=== PATIENT | female | born 1990 | race Caucasian/White ===

== ENCOUNTER 2018-03-19 15:17 | Emergency (ER) | payer MEDICAID, OTHER ==
[2018-03-19 15:24] VITALS: BP 146/78
[2018-03-19] MEDS ORDERED: FAMOTIDINE 20 MG TABLET PO STA (15:30)
[2018-03-19] MEDS ORDERED: DEXAMETHASONE 10 MG/ML VIAL PO STA (15:30)
--- NOTE | 2018-03-19 16:32 | ED Physician Documentation ---
History of Present Illness - Stated complaint Stated Complaint: SOA/BEE STING - Chief complaint Chief Complaint: Allergic Rx - Additonal information Additional information: hx from pt 27 y/o f LMP Feb 22 today is her wedding - at 6PM she was getting ready drinking a red bull and there was several bees in it and she swallowed the bees and they stung her inside her throat pain and swelling can breathe fine but painful to swallow no facial swelling Review of Systems Constitutional: denies: Fever Throat: reports: Sore throat Respiratory: denies: Dyspnea Skin: denies: Rash PD PAST MEDICAL HISTORY - Past Medical History Respiratory: Asthma GI: GERD, GI bleed, C.difficile, Chronic diarrhea, Chronic constipation, Other : Chronic bladder infection Psych: Depression, Anxiety, Claustrophobia Derm: Psoriasis - Past Surgical History Past Surgical History: Yes Ortho: Other HEENT: Myringotomy (tubes) - Present Medications Home Medications: Ambulatory Orders Medication Instructions Recorded Confirmed Chlordiazepoxide/Clidinium Br 1 - 2 tab PO Q4HR PRN 03/13/14 03/15/14 [Librax Capsule] Diphenoxylate/Atropine [Lomotil] 1 tab PO QID PRN 03/13/14 03/15/14 Lorazepam [Ativan] 1 tab PO BID 03/13/14 03/15/14 Nortriptyline [Pamelor] 20 mg PO QPM 03/13/14 03/15/14 Ondansetron [Zofran] 4 mg PO QID PRN 03/13/14 03/15/14 Pantoprazole Sodium 40 mg PO BID 03/13/14 03/15/14 Promethazine Supp [Phenergan Supp] 25 mg SD Q6H PRN #10 supp 03/13/14 03/15/14 Promethazine [Phenergan] 25 mg PO QID PRN 03/13/14 03/15/14 Sertraline [Zoloft] 50 mg PO DAILY 03/13/14 03/15/14 busPIRone [Buspar] 5 mg PO TID 03/13/14 03/15/14 Ondansetron Odt [Zofran] 4 mg TL Q6H PRN #10 tablet 03/15/14 03/15/14 Oxycodone HCl/Acetaminophen 1 each PO Q4HR PRN #10 tablet 03/15/14 03/15/14 [Percocet 5-325 mg Tablet] Loratadine [Claritin] 10 mg PO DAILY #3 tablet 03/19/18 predniSONE [Deltasone] 60 mg PO DAILY 3 Days #9 tablet 03/19/18 - Allergies Allergies/Adverse Reactions: Allergies Allergy/AdvReac Type Severity Reaction Status Date / Time maitake mushroom Allergy Unknown Unknown Verified 03/19/18 15:24 peanut Allergy Unknown Respiratory Verified 03/19/18 15:24 reishi mushroom Allergy Unknown Unknown Verified 03/19/18 15:24 Sulfa (Sulfonamide Allergy Unknown Unknown Verified 03/19/18 15:24 Antibiotics) - Social History Does the pt smoke?: No Smoking Status: Former smoker Does the pt drink ETOH?: No Does the pt have substance abuse?: No - POLST Patient has POLST: No PD ED PE NORMAL - Vitals Vital signs reviewed: Yes - HEENT HEENT: Other (no visible oral swelling) - Cardiac Cardiac: RRR - Respiratory Respiratory: No respiratory distress, Clear bilaterally, Other (no wheeze or stridor) - Derm Derm: Normal color, No rash - Neuro Neuro: Alert and oriented X 3 Results - Vitals Vitals: Vital Signs - 24 hr 03/19/18 15:20 Temperature 36.6 C Heart Rate 95 Respiratory 18 Rate Blood Pressure 146/78 H O2 Saturation 99 Oxygen O2 Source Room air PD MEDICAL DECISION MAKING - ED course ED course: local bee sting rxn that happend to be in her esophagus because she swallowed bees no airway impriment did not need epi gave steroids and H2B in addition to the 25 mg benadryl she already took pt doing better needs to get back to wedding site will only be a few miles away form the hospital feels safe to dc now - Sepsis Event Vital Signs: Vital Signs - 24 hr 03/19/18 15:20 Temperature 36.6 C Heart Rate 95 Respiratory 18 Rate Blood Pressure 146/78 H O2 Saturation 99 Oxygen O2 Source Room air Departure - Departure Disposition: 01 Home, Self Care Clinical Impression: Bee sting reaction Qualifiers: Encounter type: initial encounter Injury intent: accidental or unintentional Qualified Code(s): T63.441A - Toxic effect of venom of bees, accidental ( unintentional), initial encounter Condition: Good Instructions: ED Allergic Reaction Local Other Prescriptions: Loratadine [Claritin] 10 mg PO DAILY #3 tablet predniSONE [Deltasone] 60 mg PO DAILY 3 Days #9 tablet Comments: Take claritin and prednisone once daily for the next three days - next dose tomorrow Return if worse in any way Congratulations on your !!
== END 2018-03-19 16:34 | disposition home or self-care (01) ==
LOC: ED 15:17
DX: T63.441A Toxic effect of venom of bees, accidental (unintentional), initial encounter (principal); Z87.891 Personal history of nicotine dependence
CPT/HCPCS: 99281; 99283; A9270

== ENCOUNTER 2019-02-16 10:49 | Observation (INO) | payer MEDICAID, OTHER ==
[2019-02-16 11:35] LABS: BASOPHILS # (AUTO) 0.1 10^3/uL (0.0-0.1); BASOPHILS % (AUTO) 0.4 %; EOSINOPHILS % (AUTO) 0.2 %; HGB - HEMOGLOBIN 15.1 g/dL (12.0-16.0); LYMPHOCYTES # (AUTO) 0.7 10^3/uL (1.5-3.5); LYMPHOCYTES % (AUTO) 3.7 %; MEAN CORPUSCULAR HEMOGLOBIN 29.7 pg (27.0-31.0); MEAN CORPUSCULAR HGB CONC 34.2 g/dL (32.0-36.0); MEAN CORPUSCULAR VOLUME 86.6 fL (81.0-99.0); MEAN PLATELET VOLUME 9.5 fL (7.9-10.8); MONOCYTES # (AUTO) 0.4 10^3/uL (0.0-1.0); NEUTROPHILS # (AUTO) 18.5 10^3/uL (1.5-6.6); PLT - PLATELET COUNT 406 10^3/uL (130-450); RED BLOOD COUNT 5.09 10^6/uL (4.20-5.40); RED CELL DISTRIBUTION WIDTH 12.7 % (12.0-15.0); WHITE BLOOD COUNT 19.9 x10^3/uL (4.8-10.8)
[2019-02-16] MEDS ORDERED: SODIUM CHLORIDE 0.9% 1,000 ML IV ONE ×3 (11:41→14:37)
[2019-02-16] MEDS ORDERED: ONDANSETRON 4 MG/2 ML VIAL IVP STA ×2 (11:41→15:15)
[2019-02-16] MEDS ORDERED: LORazepam 2 MG/ML VIAL IVP STA (11:42)
[2019-02-16 11:49] LABS: ALBUMIN 4.4 g/dL (3.2-5.5); ALBUMIN/GLOBULIN RATIO 1.4 (1.0-2.2); BILIRUBIN,TOTAL 1.3 mg/dL (0.2-1.0); CALCIUM 9.4 mg/dL (8.5-10.3); CREATININE 0.9 mg/dL (0.4-1.0); TOTAL PROTEIN 7.6 g/dL (6.7-8.2)
[2019-02-16] MEDS ORDERED: ONDANSETRON 4 MG/2 ML VIAL ONE (11:51)
[2019-02-16] MEDS ORDERED: HALOPERIDOL 5 MG/ML VIAL IVP ONE (12:25)
[2019-02-16] MEDS ORDERED: fentaNYL 100 MCG/2 ML VIAL IVP STA ×2 (12:26→13:44)
[2019-02-16 13:29] LABS: MUDS CUTOFF CONCENTRATIONS CUTOFF CONC BELOW:
[2019-02-16 13:41] LABS: BILIRUBIN,URINE NEGATIVE (NEGATIVE); GLUCOSE, URINE (UA) NEGATIVE (NEGATIVE); KETONES,URINE (UA) >=80 mg/dL (NEGATIVE); LEUKOCYTE ESTERASE, URINE NEGATIVE (NEGATIVE); NITRITE,URINE NEGATIVE (NEGATIVE); OCCULT BLOOD,URINE NEGATIVE (NEGATIVE); PH,URINE 8.5 PH (5.0-7.5); PROTEIN,URINE TRACE mg/dL (NEGATIVE); UROBILINOGEN,URINE 0.2 (NORMAL) E.U./dL (NORMAL)
[2019-02-16 13:43] LABS: CLARITY,URINE CLEAR (CLEAR); HCG UR QUAL NEGATIVE
[2019-02-16] MEDS ORDERED: PROMETHAZINE INJ 12.5 MG in SODIUM CHLORIDE 0.9% 50 ML IV STA (13:43)
[2019-02-16 13:58] LABS: AMPHETAMINE SCREEN,URINE NEGATIVE (NEGATIVE); BENZODIAZEPINES SCREEN, URINE POSITIVE (NEGATIVE); COCAINE SCREEN URINE NEGATIVE (NEGATIVE); METHADONE SCREEN, URINE NEGATIVE (NEGATIVE); METHAMPHETAMINES SCREEN, URINE NEGATIVE (NEGATIVE); OPIATE SCREEN, URINE POSITIVE (NEGATIVE); OXYCODONE SCREEN, URINE NEGATIVE (NEGATIVE); PROPOXYPHENE SCREEN, URINE NEGATIVE (NEGATIVE); TRICYCLIC ANTIDEPRESSANT,URINE POSITIVE (NEGATIVE)
--- NOTE | 2019-02-16 14:31 | ED Physician Documentation ---
PD HPI ABD PAIN - Stated complaint Stated Complaint: VOMITING - Chief complaint Chief Complaint: Abd Pain - History obtained from History obtained from: Patient, Family - History of Present Illness Timing - onset: Today Timing - details: Still present Quality: Pain Location: Epigastric Associated symptoms: Nausea, Vomiting Similar symptoms before: Diagnosis (Cyclic vomiting syndrome) - Additional information Additional information: The patient is a 28-year-old female who has a history of cyclic vomiting syndrome, and presents with vomiting and epigastric abdominal pain that started about 1 AM today. She denies fever, diarrhea, or dysuria. She has history of similar symptoms in the past, with last hospitalization for intractable vomiting 4 years ago. She reports that Haldol has helped in the past. She has been told that marijuana can be a cause for cyclic vomiting, but she does not think that is the case with her. She last used marijuana yesterday. She states that she stopped marijuana for 3 months and it did not make any difference. Review of Systems Constitutional: reports: Fatigue. denies: Fever Ears: denies: Tinnitus/ringing Nose: denies: Congestion Throat: denies: Sore throat Cardiac: denies: Chest pain / pressure Respiratory: denies: Dyspnea, Cough GI: reports: Abdominal Pain, Nausea, Vomiting. denies: Diarrhea : denies: Dysuria Skin: denies: Rash Musculoskeletal: denies: Back pain, Extremity pain Neurologic: denies: Focal weakness, Numbness, Headache PD PAST MEDICAL HISTORY - Past Medical History Respiratory: Asthma GI: GERD, GI bleed, C.difficile, Chronic diarrhea, Chronic constipation, Other : Chronic bladder infection Psych: Depression, Anxiety, Claustrophobia Derm: Psoriasis - Past Surgical History Past Surgical History: Yes Ortho: Other HEENT: Myringotomy (tubes) - Present Medications Home Medications: Ambulatory Orders Medication Instructions Recorded Confirmed busPIRone [Buspar] 15 mg PO TID 03/13/14 02/16/19 Nortriptyline HCl 100 mg PO QPM 02/16/19 02/16/19 Ondansetron [Ondansetron Odt] 4 mg PO Q6H PRN 02/16/19 02/16/19 Propranolol HCl 40 mg PO DAILY 02/16/19 02/16/19 Rizatriptan Benzoate [Rizatriptan] 5 mg PO PRN PRN MDD 10 mg 02/16/19 02/16/19 - Allergies Allergies/Adverse Reactions: Allergies Allergy/AdvReac Type Severity Reaction Status Date / Time maitake mushroom Allergy Unknown Unknown Verified 02/16/19 10:57 peanut Allergy Unknown Respiratory Verified 02/16/19 10:57 reishi mushroom Allergy Unknown Unknown Verified 02/16/19 10:57 Sulfa (Sulfonamide Allergy Unknown Unknown Verified 02/16/19 10:57 Antibiotics) - Social History Does the pt smoke?: No Smoking Status: Never smoker Does the pt drink ETOH?: No Does the pt have substance abuse?: No - POLST Patient has POLST: No PD ED PE NORMAL - Vitals Vital signs reviewed: Yes (normal) - General General: Alert and oriented X 3, Well developed/nourished, Other (Appears miserable, sitting up on the edge the bed holding an emesis bag.) - HEENT HEENT: Atraumatic, EOMI, Pharynx benign, Other (Dry buccal mucosa, and sunken eyes.) - Neck Neck: Supple, no meningeal sign, No adenopathy - Cardiac Cardiac: RRR - Respiratory Respiratory: No respiratory distress, Clear bilaterally - Abdomen Abdomen: Soft, Other (Tenderness to palpation in the epigastric region, without rebound.) - Back Back: No CVA TTP - Derm Derm: No rash - Extremities Extremities: No edema, No calf tenderness / cord - Neuro Neuro: Alert and oriented X 3, No motor deficit, No sensory deficit Results - Vitals Vitals: Vital Signs - 24 hr 02/16/19 02/16/19 02/16/19 10:54 11:18 12:58 Temperature 36.0 C L 36.7 C Heart Rate 92 99 92 Respiratory 22 22 22 Rate Blood Pressure 109/50 L 137/75 H 121/93 H O2 Saturation 100 100 100 02/16/19 14:18 Temperature 36.6 C Heart Rate 99 Respiratory 17 Rate Blood Pressure 103/86 H O2 Saturation 99 Oxygen O2 Source Room air - Labs Labs: Laboratory Tests 02/16/19 02/16/19 02/16/19 11:32 11:32 11:35 WBC 19.9 H RBC 5.09 Hgb 15.1 Hct 44.1 MCV 86.6 MCH 29.7 MCHC 34.2 RDW 12.7 Plt Count 406 MPV 9.5 Neut # (Auto) 18.5 H Lymph # (Auto) 0.7 L [place] # (Auto) 0.4 Eos # (Auto) 0.0 Baso # (Auto) 0.1 Absolute Nucleated RBC 0.00 Nucleated RBC % 0.0 Sodium 134 L Potassium 3.8 Chloride 102 Carbon Dioxide 20 L Anion Gap 12.0 BUN 13 Creatinine 0.9 Estimated GFR (MDRD) 76 L Glucose 158 H Calcium 9.4 Total Bilirubin 1.3 H AST 24 ALT 23 Alkaline Phosphatase 64 Troponin I < 0.04 Total Protein 7.6 Albumin 4.4 Globulin 3.2 Albumin/Globulin Ratio 1.4 Lipase 22 Urine Color Urine Clarity Urine pH Ur Specific [place] Urine Protein Urine Glucose (UA) Urine Ketones Urine Occult Blood Urine Nitrite Urine Bilirubin Urine Urobilinogen Ur Leukocyte Esterase Ur Microscopic Review Urine Culture Comments Urine HCG, Qual Urine Opiates Screen Ur Oxycodone Screen Urine Methadone Screen Ur Propoxyphene Screen Ur Barbiturates Screen Ur Tricyclics Screen Ur Phencyclidine Scrn Ur Amphetamine Screen U Methamphetamines Scrn U Benzodiazepines Scrn Urine Cocaine Screen U Cannabinoids Screen 02/16/19 02/16/19 13:22 13:22 WBC RBC Hgb Hct MCV MCH MCHC RDW Plt Count MPV Neut # (Auto) Lymph # (Auto) [place] # (Auto) Eos # (Auto) Baso # (Auto) Absolute Nucleated RBC Nucleated RBC % Sodium Potassium Chloride Carbon Dioxide Anion Gap BUN Creatinine Estimated GFR (MDRD) Glucose Calcium Total Bilirubin AST ALT Alkaline Phosphatase Troponin I Total Protein Albumin Globulin Albumin/Globulin Ratio Lipase Urine Color YELLOW Urine Clarity CLEAR Urine pH 8.5 H Ur Specific [place] 1.010 1.010 Urine Protein TRACE Urine Glucose (UA) NEGATIVE Urine Ketones >=80 H Urine Occult Blood NEGATIVE Urine Nitrite NEGATIVE Urine Bilirubin NEGATIVE Urine Urobilinogen 0.2 (NORMAL) Ur Leukocyte Esterase NEGATIVE Ur Microscopic Review NOT INDICATED Urine Culture Comments NOT INDICATED Urine HCG, Qual NEGATIVE Urine Opiates Screen POSITIVE H Ur Oxycodone Screen NEGATIVE Urine Methadone Screen NEGATIVE Ur Propoxyphene Screen NEGATIVE Ur Barbiturates Screen NEGATIVE Ur Tricyclics Screen POSITIVE H Ur Phencyclidine Scrn NEGATIVE Ur Amphetamine Screen NEGATIVE U Methamphetamines Scrn NEGATIVE U Benzodiazepines Scrn POSITIVE H Urine Cocaine Screen NEGATIVE U Cannabinoids Screen POSITIVE H PD MEDICAL DECISION MAKING - ED course Complexity details: reviewed old records, reviewed results, re-evaluated patient, considered differential, d/w patient, d/w family, d/w behavioral health consultant ED course: The patient's presentation is most consistent with cyclic vomiting syndrome. Her presentation does not suggest bowel obstruction, biliary colic, or pancreatitis. Her white blood cell count is elevated at 19.9, which is similar to her previous similar presentations. Review of her medical records reveals her last hospitalization with similar episode was about 4 years ago. Prior to that her similar episodes had been more frequent. Treatment in the emergency department included administration of normal saline 3 L IV, Zofran 4 mg IV x2, Phenergan 12.5 mg IV, lorazepam 0.5 mg IV, Haldol 1 mg IV, and fentanyl 50 mcg IV x2. On multiple reexaminations, the patient's symptoms did not holly. Capsaicin cream was applied topically, without improvement. I discussed her condition with Dr. Gonzalez, who accepts her for further evaluation and treatment. Departure - Departure Disposition: ED Place in Observation Clinical Impression: Intractable vomiting with nausea Qualifiers: Vomiting type: cyclical vomiting Qualified Code(s): G43.A1 - Cyclical vomiting, intractable Condition: Stable Discharge Date/Time: 02/16/19 16:24
[2019-02-16] MEDS ORDERED: CAPSAICIN 0.025% CREAM 60 GM TUBE TOP STA (15:07)
[2019-02-16] MEDS ORDERED: ACETAMINOPHEN 325 MG TABLET PO PRN (15:44)
[2019-02-16] MEDS ORDERED: TEMAZEPAM 15 MG CAPSULE PO PRN (15:44)
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
[2019-02-16] MEDS ORDERED: HALOPERIDOL 5 MG/ML VIAL IVP PRN ×2 (17:20→17:35)
[2019-02-16] MEDS: SODIUM CHLORIDE 0.9% 1,000 ML IV SCH (18:03)
[2019-02-16] MEDS: SODIUM CHLORIDE FLUSH 0.9% 10 ML SYRINGE IVP SCH (18:03)
[2019-02-16] MEDS: PANTOPRAZOLE 40 MG VIAL IVP SCH (18:03)
[2019-02-16] MEDS: HYDROmorphone 1 MG/ML CARPUJECT IVP PRN (18:04)
[2019-02-16] MEDS: METOCLOPRAMIDE 10 MG/2 ML VIAL IVP SCH (18:23)
--- NOTE | 2019-02-16 19:58 | Ultrasound Report ---
Reason: abdominal pain Procedure Date: 02/16/2019 Accession Number: [id number] / [id number] Procedure: US - Abdomen Complete CPT Code: FULL RESULT: EXAM: ABDOMEN ULTRASOUND EXAM DATE: 02/16/2019 07:00 PM. CLINICAL HISTORY: Abdominal pain. COMPARISON: ABDOMEN 08/05/2014 1:30 AM. TECHNIQUE: Real-time scanning was performed with static images obtained. FINDINGS: Liver: Upper limits of normal in size . Normal echotexture. 18.1 cm. Main portal vein flow: Hepatopetal. Gallbladder: Normal. No stones, wall thickening, or sonographic Vasquez's sign. Biliary System: Common bile duct measures 4 mm. No intrahepatic or extrahepatic ductal dilatation. Pancreas: Mostly obscured by bowel gas. Kidneys: Right: 11.2 cm longitudinally. Normal. No contour-deforming mass, stones, or hydronephrosis. Left: 12.0 cm longitudinally. Small cyst versus dilated calyx at the lower pole measuring 10 x 5 x 8 mm. No contour-deforming mass, stones, or hydronephrosis. Spleen: 11.4 cm. Normal in size and echotexture. Aorta and Inferior Vena Cava: Unremarkable. Other: None. IMPRESSION: No acute findings to explain symptoms of chronic abdominal pain and cyclic vomiting. RADIA
[2019-02-17] MEDS: METOCLOPRAMIDE 10 MG/2 ML VIAL IVP SCH ×4 (00:42→17:31)
[2019-02-17] MEDS: SODIUM CHLORIDE FLUSH 0.9% 10 ML SYRINGE IVP SCH ×4 (00:42→17:31)
[2019-02-17] MEDS: SODIUM CHLORIDE 0.9% 1,000 ML IV SCH ×2 (03:43→13:23)
[2019-02-17] MEDS: PANTOPRAZOLE 40 MG VIAL IVP SCH (06:42)
[2019-02-17] MEDS: SODIUM CHLORIDE FLUSH 0.9% 10 ML SYRINGE IVP PRN ×5 (06:43→13:23)
[2019-02-17] MEDS: HYDROmorphone 1 MG/ML CARPUJECT IVP PRN ×5 (07:04→15:34)
[2019-02-17] MEDS: POLYETHYLENE GLYCOL 3350 17 GM PACKET PO SCH (09:20)
[2019-02-17 12:11] LABS: BASOPHILS % (AUTO) 0.3 %; EOSINOPHILS # (AUTO) 0.1 10^3/uL (0.0-0.7); EOSINOPHILS % (AUTO) 1.1 %; HGB - HEMOGLOBIN 12.5 g/dL (12.0-16.0); LYMPHOCYTES # (AUTO) 1.8 10^3/uL (1.5-3.5); MEAN CORPUSCULAR HEMOGLOBIN 29.3 pg (27.0-31.0); MEAN CORPUSCULAR HGB CONC 33.2 g/dL (32.0-36.0); MEAN CORPUSCULAR VOLUME 88.3 fL (81.0-99.0); MEAN PLATELET VOLUME 9.4 fL (7.9-10.8); MONOCYTES % (AUTO) 8.8 %; NEUTROPHILS # (AUTO) 7.8 10^3/uL (1.5-6.6); NEUTROPHILS % (AUTO) 72.3 %; PLT - PLATELET COUNT 303 10^3/uL (130-450); RED BLOOD COUNT 4.26 10^6/uL (4.20-5.40); RED CELL DISTRIBUTION WIDTH 13.2 % (12.0-15.0); WHITE BLOOD COUNT 10.8 x10^3/uL (4.8-10.8)
[2019-02-17 12:22] LABS: ALBUMIN 3.5 g/dL (3.2-5.5); ALBUMIN/GLOBULIN RATIO 1.3 (1.0-2.2); BILIRUBIN,TOTAL 0.5 mg/dL (0.2-1.0); CALCIUM 8.3 mg/dL (8.5-10.3); CREATININE 0.6 mg/dL (0.4-1.0); MAGNESIUM 1.7 mg/dL (1.7-2.8); PHOSPHORUS 1.8 mg/dL (2.5-4.6); TOTAL PROTEIN 6.1 g/dL (6.7-8.2)
[2019-02-17 12:30] LABS: HB2 TOTAL 13.2 g/dL; HEMOGLOBIN A1C 0.44 g/dL; HEMOGLOBIN A1C % 5.2 % (4.6-6.2)
[2019-02-17 12:34] LABS: CRP - C-REACTIVE PROTEIN 1.6 mg/dL (0-1.0)
[2019-02-17] MEDS: MAGNESIUM OXIDE 400 MG TABLET PO SCH (13:22)
[2019-02-17] MEDS ORDERED: POTASSIUM CHLORIDE 20 MEQ TABLET PO SCH (16:07)
[2019-02-17] MEDS ORDERED: HYDROmorphone 1 MG/ML CARPUJECT IVP PRN (17:28)
[2019-02-17] MEDS ORDERED: GI COCKTAIL 120 ML BOTTLE PO ONE ×2 (17:29→19:00)
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
[2019-02-17] MEDS ORDERED: NORTRIPTYLINE 25 MG CAPSULE PO SCH (21:00)
[2019-02-17] MEDS ORDERED: PROPRANOLOL 40 MG TABLET PO SCH (21:00)
[2019-02-17] MEDS: FAMOTIDINE 20 MG TABLET PO SCH (21:05)
[2019-02-17] MEDS: busPIRone 5 MG TABLET PO SCH (21:05)
[2019-02-17] MEDS: HYDROcod/ACETAM 5/325 MG TABLET PO PRN (21:05)
[2019-02-18] MEDS: METOCLOPRAMIDE 10 MG TABLET PO SCH ×3 (00:24→12:36)
[2019-02-18] MEDS: SODIUM CHLORIDE FLUSH 0.9% 10 ML SYRINGE IVP SCH (00:27)
[2019-02-18 04:57] LABS: CALCIUM 8.3 mg/dL (8.5-10.3); CREATININE 0.6 mg/dL (0.4-1.0)
[2019-02-18] MEDS: busPIRone 5 MG TABLET PO SCH ×2 (05:46→14:45)
--- NOTE | 2019-02-18 07:24 | Discharge Plan ---
Discharge Plan Problem Reviewed?: Yes Disposition: Home, Self Care Condition: Good Prescriptions: Haloperidol [Haldol] 0.5 mg PO Q8H PRN #20 tablet PRN Reason: Nausea / Vomiting Metoclopramide [Reglan] 10 mg PO Q6H #56 tablet Diet: Regular Activity Restrictions: Activity as Tolerated Shower Restrictions: No Driving Restrictions: No Instruction Topics: Metoclopramide tablets Health Concerns: Abdominal pain Nausea and vomiting Marijuana use Stress at home Plan of Treatment: Continue Reglan scheduled, and Haldol for break through symptoms at home Avoid any inhalants with having asthma, as this can cause nursing home heart effects Get set up with a therapist Try to reduce stress at home, family support Care Goals: Prevent further symptoms Prevent hospital stays or ED visits Assessment: You were admitted for nausea, vomiting, and abdominal pain. After IV fluids and medications to manage your symptoms, you improved and were able to tolerate meals. An abdominal ultrasound was negative for gall stones, or any other abnormalities . Please continue Reglan at home for the next few weeks. Please see your PCP within one week and get set up with a regular therapist. Additional Instructions or Follow Up instructions: Cyclic vomiting syndrome (CVS) is an idiopathic (unknown cause) disorder characterized by recurrent, stereotypical bouts of vomiting with intervening periods of normal health. Hyperemesis syndrome -Cannabinoid hyperemesis syndrome is a well-defined syndrome involving episodic severe nausea and vomiting and abdominal pain which is relieved by exposure to hot water (shower or bath). The pathophysiology remains unknown, but patients are almost always daily cannabis users for at least one year and symptoms resolve within 1-4 days of cessation of cannabis use. Cannabis smoking acutely irritates the airways and is associated with transient cough, sputum production, wheezing, chest tightness, and airway inflammation, as well as bronchodilatation, which may account for past use of cannabis to treat asthma. Support and counseling may be helpful for selected patients. The Cyclic Vomiting Syndrome Association (CVSA), an international organization, was established in 1992 to provide support to patients with CVS. For more information on the CVSA, contact: Cyclic Vomiting Syndrome Association (CVSA-[place]) [address] [place] [address]. [place] [phone] E-mail: Website: www.cvsaonline.org No Smoking: If you smoke, Please STOP! Call for help. Follow-up with: Wm Goddard DO [Primary Care Provider] -
[2019-02-18] MEDS: HYDROcod/ACETAM 5/325 MG TABLET PO PRN (07:52)
[2019-02-18] MEDS: MAGNESIUM OXIDE 400 MG TABLET PO SCH (07:52)
[2019-02-18] MEDS: POLYETHYLENE GLYCOL 3350 17 GM PACKET PO SCH (07:54)
[2019-02-18] MEDS: SODIUM CHLORIDE FLUSH 0.9% 10 ML SYRINGE IVP PRN (07:54)
[2019-02-18] MEDS: FAMOTIDINE 20 MG TABLET PO SCH (07:54)
[2019-02-18] MEDS ORDERED: LORazepam 0.5 MG TABLET PO PRN (08:46)
[2019-02-18] MEDS ORDERED: PROPRANOLOL 40 MG TABLET PO SCH (09:00)
[2019-02-18] MEDS ORDERED: HALOPERIDOL 5 MG/ML VIAL IVP SCH (09:19)
[2019-02-18] MEDS ORDERED: HALOPERIDOL 5 MG/ML VIAL ONE (09:47)
[2019-02-18] MEDS ORDERED: NS W/20 MEQ KCL 1,000 ML IV SCH (10:00)
[2019-02-18] MEDS ORDERED: oxyCODONE 5 MG TABLET PO PRN (10:29)
[2019-02-18] MEDS ORDERED: DEXAMETHASONE 10 MG/ML VIAL IVP SCH (10:32)
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
[2019-02-18] MEDS ORDERED: PROMETHAZINE 25 MG SUPP PR PRN (10:51)
[2019-02-18 14:46] VITALS: BP 141/85
== END 2019-02-18 14:45 | disposition home or self-care (01) ==
LOC: ED 10:49 → MS3 15:44
PROVIDERS: ADMIT Nurse Practitioner; ATTEND Nurse Practitioner
DX: K31.89 Other diseases of stomach and duodenum (principal); R11.14 Bilious vomiting; E86.0 Dehydration; E87.6 Hypokalemia; F12.280 Cannabis dependence with cannabis-induced anxiety disorder; F12.288 Cannabis dependence with other cannabis-induced disorder; F17.208 Nicotine dependence, unspecified, with other nicotine-induced disorders; F32.9 Major depressive disorder, single episode, unspecified; F43.10 Post-traumatic stress disorder, unspecified; J45.909 Unspecified asthma, uncomplicated; G43.909 Migraine, unspecified, not intractable, without status migrainosus; K21.9 Gastro-esophageal reflux disease without esophagitis; K58.2 Mixed irritable bowel syndrome; Z87.19 Personal history of other diseases of the digestive system; Z86.19 Personal history of other infectious and parasitic diseases; Z87.11 Personal history of peptic ulcer disease; Z63.79 Other stressful life events affecting family and household; Z79.899 Other long term (current) drug therapy; Z86.14 Personal history of Methicillin resistant Staphylococcus aureus infection
CPT/HCPCS: 36415; 76700; 80048; 80053; 80306; 81003; 81025; 82977; 83036; 83605; 83690; 83735; 84100; 84443; 84484; 85025; 86140; 93005; 96361; 96365; 96366; 96367; 96375; 96376; 99284; A9270; G0378; J1170; J2060; J2765; J7040; J8498; 81001; 87086

== ENCOUNTER 2019-04-13 08:43 | Outpatient (CLI) | payer MEDICAID ==
[2019-04-13 09:25] LABS: ALBUMIN 4.2 g/dL (3.2-5.5); ALBUMIN/GLOBULIN RATIO 1.4 (1.0-2.2); BILIRUBIN,TOTAL 0.7 mg/dL (0.2-1.0); CALCIUM 9.2 mg/dL (8.5-10.3); CREATININE 0.8 mg/dL (0.4-1.0); TOTAL PROTEIN 7.2 g/dL (6.7-8.2)
[2019-04-13 09:48] LABS: HB2 TOTAL 15.3 g/dL; HEMOGLOBIN A1C 0.52 g/dL; HEMOGLOBIN A1C % 5.3 % (4.6-6.2)
[2019-04-13 10:03] LABS: PROLACTIN 8.43 ng/mL
[2019-04-13 10:26] LABS: FOLLICLE STIMULATING HORMONE 6.39 mIU/mL
[2019-04-14 06:41] LABS: ESTRADIOL 40 pg/mL; PROGESTERONE <0.5 ng/mL
== END 2019-04-13 08:44 | disposition home or self-care (01) ==
LOC: LAB 08:43
PROVIDERS: ATTEND Obstetrics & Gynecology
DX: N97.9 Female infertility, unspecified (principal)
CPT/HCPCS: 36415; 80053; 82670; 83001; 83036; 84144; 84146; 84403

== ENCOUNTER 2019-04-17 14:59 | Outpatient (CLI) | payer MEDICAID ==
--- NOTE | 2019-04-17 17:35 | Ultrasound Report ---
Reason: INFERTILITY, FEMALE NOS Procedure Date: 04/17/2019 Accession Number: [id number] / [id number] Procedure: US - Pelvic w/Transvaginal CPT Code: FULL RESULT: EXAM: PELVIC ULTRASOUND EXAM DATE: 04/17/2019 04:50 PM. CLINICAL HISTORY: Infertility. COMPARISON: None. TECHNIQUE: Realtime transabdominal pelvic scan performed to identify the uterus and adnexa and as an overview of other pelvic structures, followed by transvaginal scan to provide greater detail of the uterus and adnexa, with static image documentation. FINDINGS: Uterus: 6.1 x 2.6 x 4.5 cm, volume 38 cc. Anteverted position. Normal overall size and echotexture. Masses: None. Endometrium: 5 mm. Normal. Cervix: Small simple fluid present in the endocervical canal measuring 2 mm in thickness. No mass lesion identified. Right Ovary: 2.4 x 2.1 x 1.8 cm, volume 4.8 cc. Normal echotexture and blood flow. Follicles measure up to 1.4 cm. Left Ovary: 2.6 x 1.7 x 2.6 cm, volume 6.1 cc. Normal echotexture and blood flow. Follicles measure up to 1.3 cm. Free Fluid: None. Other: None. IMPRESSION: 1. Small fluid in endocervical canal. 2. Ovaries within normal limits. No sonographic evidence for polycystic ovarian syndrome. RADIA
== END 2019-04-17 15:00 | disposition home or self-care (01) ==
LOC: DI 14:59
PROVIDERS: ATTEND Obstetrics & Gynecology
DX: N97.9 Female infertility, unspecified (principal)
CPT/HCPCS: 76830; 76856

== ENCOUNTER 2019-05-01 19:04 | Outpatient (CLI) | payer MEDICAID | END 2019-05-01 19:05 | disposition home or self-care (01) | LOC: LAB 19:04 | PROVIDERS: ATTEND Obstetrics & Gynecology | DX: Z31.69 Encounter for other general counseling and advice on procreation (principal) | CPT/HCPCS: 36415; 84144 ==

== ENCOUNTER 2019-08-05 17:00 | Emergency (ER) | payer SELFPAY ==
[2019-08-05] MEDS ORDERED: LORazepam 2 MG/ML VIAL IVP STA ×2 (17:23→21:32)
[2019-08-05] MEDS ORDERED: SODIUM CHLORIDE 0.9% 1,000 ML IV ONE (17:23)
[2019-08-05] MEDS ORDERED: HALOPERIDOL 5 MG/ML VIAL IVP ONE (17:23)
--- NOTE | 2019-08-05 17:25 | ED Physician Documentation ---
PD HPI ABD PAIN - Stated complaint Stated Complaint: VOMITING - Chief complaint Chief Complaint: Abd Pain - History obtained from History obtained from: Patient - History of Present Illness Timing - onset: Today (29-year-old daily marijuana user with history of cyclical vomiting. She started vomiting today, upper abdominal pain. No diarrhea. No sick contacts. Tried Haldol, Zofran and some other meds at home without relief.) Review of Systems Constitutional: reports: Sweats. 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 : Chronic bladder infection HEENT: Chronic sinusitis Psych: Depression, Anxiety, Claustrophobia Musculoskeletal: None Derm: Psoriasis - Past Surgical History Past Surgical History: Yes General: Colonoscopy, EGD Ortho: Other HEENT: Myringotomy (tubes) - Present Medications Home Medications: Ambulatory Orders Medication Instructions Recorded Confirmed busPIRone [Buspar] 15 mg PO TID 03/13/14 02/16/19 Nortriptyline HCl 100 mg PO QPM 02/16/19 02/16/19 Ondansetron [Ondansetron Odt] 4 mg PO Q6H PRN 02/16/19 02/16/19 Propranolol HCl 40 mg PO DAILY 02/16/19 02/16/19 Rizatriptan Benzoate [Rizatriptan] 5 mg PO PRN PRN MDD 10 mg 02/16/19 02/16/19 diphenhydrAMINE [Benadryl] 50 mg PO HS 02/17/19 02/17/19 Haloperidol [Haldol] 0.5 mg PO Q8H PRN #20 tablet 02/18/19 Metoclopramide [Reglan] 10 mg PO Q6H #56 tablet 02/18/19 Metoclopramide [Reglan] 10 mg PO Q6H PRN #20 tablet 08/05/19 - Allergies Allergies/Adverse Reactions: Allergies Allergy/AdvReac Type Severity Reaction Status Date / Time maitake mushroom Allergy Unknown Unknown Verified 08/05/19 17:04 peanut Allergy Unknown Respiratory Verified 08/05/19 17:04 reishi mushroom Allergy Unknown Unknown Verified 08/05/19 17:04 Sulfa (Sulfonamide Allergy Unknown Unknown Verified 08/05/19 17:04 Antibiotics) - Social History Does the pt smoke?: No Smoking Status: Never smoker Does the pt drink ETOH?: No Does the pt have substance abuse?: No - POLST Patient has POLST: No POLST Status: Full Code PD ED PE NORMAL - Vitals Vital signs reviewed: Yes - General General: Alert and oriented X 3, Other (Sweaty retching) - HEENT HEENT: PERRL - Neck Neck: Supple, no meningeal sign, No bony TTP - Cardiac Cardiac: RRR, No murmur - Respiratory Respiratory: No respiratory distress, Clear bilaterally - Abdomen Abdomen: Soft, Non tender - Back Back: No CVA TTP, No spinal TTP - Derm Derm: Normal color, Warm and dry - Extremities Extremities: No edema, No calf tenderness / cord - Neuro Neuro: Alert and oriented X 3, Normal speech Results - Vitals Vitals: Vital Signs - 24 hr 08/05/19 08/05/19 08/05/19 17:04 18:45 20:06 Temperature 36.6 C 36.8 C 37 C Heart Rate 85 98 88 Respiratory 16 16 12 Rate Blood Pressure 140/92 H 124/84 H 137/88 H O2 Saturation 100 99 100 08/05/19 21:40 Temperature 36.8 C Heart Rate 94 Respiratory 16 Rate Blood Pressure 136/88 H O2 Saturation 100 Oxygen O2 Source Room air - Labs Labs: Laboratory Tests 08/05/19 08/05/19 08/05/19 17:15 17:15 18:17 WBC 13.0 H RBC 4.99 Hgb 14.7 Hct 43.5 MCV 87.2 MCH 29.5 MCHC 33.8 RDW 12.5 Plt Count 400 MPV 9.2 Neut # (Auto) 11.3 H Lymph # (Auto) 1.0 L [place] # (Auto) 0.6 Eos # (Auto) 0.0 Baso # (Auto) 0.1 Absolute Nucleated RBC 0.00 Nucleated RBC % 0.0 Sodium 137 Potassium 3.4 L Chloride 99 L Carbon Dioxide 25 Anion Gap 13.0 BUN 9 Creatinine 0.7 Estimated GFR (MDRD) 100 Glucose 149 H Calcium 9.7 Total Bilirubin 0.8 AST 23 ALT 28 Alkaline Phosphatase 64 Total Protein 7.7 Albumin 4.4 Globulin 3.3 Albumin/Globulin Ratio 1.3 Lipase 21 L Urine Color Urine Clarity Urine pH Ur Specific [place] Urine Protein Urine Glucose (UA) Urine Ketones Urine Occult Blood Urine Nitrite Urine Bilirubin Urine Urobilinogen Ur Leukocyte Esterase Urine RBC Urine WBC Ur Squamous Epith Cells Urine Bacteria Urine Mucus Ur Microscopic Review Urine Culture Comments Urine HCG, Qual Urine Opiates Screen NEGATIVE Ur Oxycodone Screen NEGATIVE Urine Methadone Screen POSITIVE H Ur Propoxyphene Screen NEGATIVE Ur Barbiturates Screen NEGATIVE Ur Tricyclics Screen POSITIVE H Ur Phencyclidine Scrn NEGATIVE Ur Amphetamine Screen NEGATIVE U Methamphetamines Scrn NEGATIVE U Benzodiazepines Scrn POSITIVE H Urine Cocaine Screen NEGATIVE U Cannabinoids Screen POSITIVE H 08/05/19 18:17 WBC RBC Hgb Hct MCV MCH MCHC RDW Plt Count MPV Neut # (Auto) Lymph # (Auto) [place] # (Auto) Eos # (Auto) Baso # (Auto) Absolute Nucleated RBC Nucleated RBC % Sodium Potassium Chloride Carbon Dioxide Anion Gap BUN Creatinine Estimated GFR (MDRD) Glucose Calcium Total Bilirubin AST ALT Alkaline Phosphatase Total Protein Albumin Globulin Albumin/Globulin Ratio Lipase Urine Color YELLOW Urine Clarity CLEAR Urine pH 8.0 H Ur Specific [place] 1.015 Urine Protein 30 H Urine Glucose (UA) NEGATIVE Urine Ketones >=80 H Urine Occult Blood TRACE-INTA Urine Nitrite NEGATIVE Urine Bilirubin NEGATIVE Urine Urobilinogen 0.2 (NORMAL) Ur Leukocyte Esterase NEGATIVE Urine RBC None Seen Urine WBC 0-3 Ur Squamous Epith Cells NONE SEEN Urine Bacteria None Seen Urine Mucus Moderate Strands Ur Microscopic Review INDICATED Urine Culture Comments NOT INDICATED Urine HCG, Qual NEGATIVE Urine Opiates Screen Ur Oxycodone Screen Urine Methadone Screen Ur Propoxyphene Screen Ur Barbiturates Screen Ur Tricyclics Screen Ur Phencyclidine Scrn Ur Amphetamine Screen U Methamphetamines Scrn U Benzodiazepines Scrn Urine Cocaine Screen U Cannabinoids Screen PD MEDICAL DECISION MAKING - ED course ED course: 29-year-old woman with history of cyclic vomiting syndrome presents with an exacerbation of same. She was not receptive to any discussion that this was related to marijuana. Also she had methadone in her system. Treated stepwise with medications and passed an oral challenge and requested discharge. Departure - Departure Disposition: 01 Home, Self Care Clinical Impression: Abdominal pain, Intractable vomiting with nausea Condition: Good Record reviewed to determine appropriate education?: Yes Instructions: ED Nausea Vomiting Prescriptions: Metoclopramide [Reglan] 10 mg PO Q6H PRN #20 tablet PRN Reason: nausea or headache Comments: Call your doctor to arrange a follow-up appointment, make the next available appointment. In the interim, return anytime if worse or if new symptoms develop. Discharge Date/Time: 08/05/19 21:45
[2019-08-05 17:30] LABS: BASOPHILS # (AUTO) 0.1 10^3/uL (0.0-0.1); BASOPHILS % (AUTO) 0.4 %; EOSINOPHILS % (AUTO) 0.2 %; HGB - HEMOGLOBIN 14.7 g/dL (12.0-16.0); LYMPHOCYTES % (AUTO) 7.7 %; MEAN CORPUSCULAR HEMOGLOBIN 29.5 pg (27.0-31.0); MEAN CORPUSCULAR HGB CONC 33.8 g/dL (32.0-36.0); MEAN CORPUSCULAR VOLUME 87.2 fL (81.0-99.0); MEAN PLATELET VOLUME 9.2 fL (7.9-10.8); MONOCYTES # (AUTO) 0.6 10^3/uL (0.0-1.0); MONOCYTES % (AUTO) 4.2 %; NEUTROPHILS # (AUTO) 11.3 10^3/uL (1.5-6.6); PLT - PLATELET COUNT 400 10^3/uL (130-450); RED BLOOD COUNT 4.99 10^6/uL (4.20-5.40); RED CELL DISTRIBUTION WIDTH 12.5 % (12.0-15.0)
[2019-08-05 17:43] LABS: ALBUMIN 4.4 g/dL (3.2-5.5); ALBUMIN/GLOBULIN RATIO 1.3 (1.0-2.2); BILIRUBIN,TOTAL 0.8 mg/dL (0.2-1.0); CALCIUM 9.7 mg/dL (8.5-10.3); CREATININE 0.7 mg/dL (0.4-1.0); TOTAL PROTEIN 7.7 g/dL (6.7-8.2)
[2019-08-05] MEDS ORDERED: HYDROmorphone 1 MG/ML CARPUJECT IVP STA ×2 (18:18→20:09)
[2019-08-05] MEDS ORDERED: KETOROLAC 30 MG/ML VIAL IVP STA (18:18)
[2019-08-05 18:19] LABS: MUDS CUTOFF CONCENTRATIONS CUTOFF CONC BELOW:
[2019-08-05 18:21] LABS: BILIRUBIN,URINE NEGATIVE (NEGATIVE); GLUCOSE, URINE (UA) NEGATIVE (NEGATIVE); KETONES,URINE (UA) >=80 mg/dL (NEGATIVE); LEUKOCYTE ESTERASE, URINE NEGATIVE (NEGATIVE); NITRITE,URINE NEGATIVE (NEGATIVE); OCCULT BLOOD,URINE TRACE-INTA (NEGATIVE); PROTEIN,URINE 30 mg/dL (NEGATIVE); UROBILINOGEN,URINE 0.2 (NORMAL) E.U./dL (NORMAL)
[2019-08-05 18:23] LABS: CLARITY,URINE CLEAR (CLEAR); HCG UR QUAL NEGATIVE
[2019-08-05 18:40] LABS: AMPHETAMINE SCREEN,URINE NEGATIVE (NEGATIVE); BENZODIAZEPINES SCREEN, URINE POSITIVE (NEGATIVE); COCAINE SCREEN URINE NEGATIVE (NEGATIVE); METHADONE SCREEN, URINE POSITIVE (NEGATIVE); METHAMPHETAMINES SCREEN, URINE NEGATIVE (NEGATIVE); OPIATE SCREEN, URINE NEGATIVE (NEGATIVE); TRICYCLIC ANTIDEPRESSANT,URINE POSITIVE (NEGATIVE)
[2019-08-05 18:41] LABS: OXYCODONE SCREEN, URINE NEGATIVE (NEGATIVE); PROPOXYPHENE SCREEN, URINE NEGATIVE (NEGATIVE)
[2019-08-05 18:47] LABS: BACTERIA,URINE None Seen /HPF (None Seen); MUCUS,URINE Moderate Strands; RBC,URINE None Seen /HPF (0-5); SQUAMOUS EPITHELIAL CELL,UR NONE SEEN (<= Few)
[2019-08-05] MEDS ORDERED: PROMETHAZINE INJ 25 MG in SODIUM CHLORIDE 0.9% 50 ML IV STA (20:14)
[2019-08-05] MEDS ORDERED: oxyCODONE/ACET 5/325 Prepack 4 PO STA (21:02)
[2019-08-05] MEDS ORDERED: SCOPOLAMINE PATCH TOP STA (21:02)
[2019-08-05] MEDS ORDERED: METOCLOPRAMIDE 10 MG TABLET PO STA (21:02)
[2019-08-05 21:41] VITALS: BP 136/88
== END 2019-08-05 21:45 | disposition home or self-care (01) ==
LOC: ED 17:00
DX: R11.2 Nausea with vomiting, unspecified (principal); R10.10 Upper abdominal pain, unspecified
CPT/HCPCS: 36415; 80053; 81001; 81025; 83690; 85025; 96361; 96365; 96375; 96376; 99284; 99285; A9270; J1170; J2060; J3490; J7040; 80306; 81003; 87086

== ENCOUNTER 2019-08-12 00:33 | Emergency (ER) | payer SELFPAY ==
--- NOTE | 2019-08-12 01:14 | ED Physician Documentation ---
PD HPI NVD - Stated complaint Stated Complaint: VOMITING - Chief complaint Chief Complaint: Abd Pain - History obtained from History obtained from: Patient - History of Present Illness Timing - onset: How many days ago (5) Timing - duration: Days (5) Timing - details: Abrupt onset, Still present, Waxing and waning Associated symptoms: Abdominal pain (mid to upper), Loss of appetite. No: Fever, Dizzy Contributing factors: No: Sick contact, Bad food, Travel Improved by: Vomiting, Other (showers or bathtub helps) Worsened by: Eating Similar symptoms before: Diagnosis (cyclic vomiting. Has seen GI and she has been without cannibis for 90 days and has had no less symptoms.) Recently seen: Emergency Dept Review of Systems Constitutional: reports: Myalgias. denies: Fever, Chills Nose: denies: Rhinorrhea / runny nose, Congestion Throat: denies: Sore throat Respiratory: denies: Dyspnea, Cough GI: reports: Abdominal Pain, Nausea, Vomiting. denies: Diarrhea : denies: Dysuria, Frequency Neurologic: reports: Generalized weakness. 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 : Chronic bladder infection HEENT: Chronic sinusitis Psych: Depression, Anxiety, Claustrophobia Musculoskeletal: None Derm: Psoriasis - Past Surgical History Past Surgical History: Yes General: Colonoscopy, EGD Ortho: Other HEENT: Myringotomy (tubes) - Present Medications Home Medications: Ambulatory Orders Medication Instructions Recorded Confirmed busPIRone [Buspar] 15 mg PO TID 03/13/14 02/16/19 Nortriptyline HCl 100 mg PO QPM 02/16/19 02/16/19 Ondansetron [Ondansetron Odt] 4 mg PO Q6H PRN 02/16/19 02/16/19 Propranolol HCl 40 mg PO DAILY 02/16/19 02/16/19 Rizatriptan Benzoate [Rizatriptan] 5 mg PO PRN PRN MDD 10 mg 02/16/19 02/16/19 diphenhydrAMINE [Benadryl] 50 mg PO HS 02/17/19 02/17/19 Metoclopramide [Reglan] 10 mg PO Q6H #56 tablet 02/18/19 Metoclopramide [Reglan] 10 mg PO Q6H PRN #20 tablet 08/05/19 Famotidine 20 mg PO DAILY #20 tablet 08/12/19 haloperidoL [Haldol] 0.5 mg PO Q8H PRN #20 tablet 08/12/19 - Allergies Allergies/Adverse Reactions: Allergies Allergy/AdvReac Type Severity Reaction Status Date / Time maitake mushroom Allergy Unknown Unknown Verified 08/12/19 00:39 peanut Allergy Unknown Respiratory Verified 08/12/19 00:39 reishi mushroom Allergy Unknown Unknown Verified 08/12/19 00:39 Sulfa (Sulfonamide Allergy Unknown Unknown Verified 08/12/19 00:39 Antibiotics) - Social History Does the pt smoke?: No Smoking Status: Never smoker Does the pt drink ETOH?: No Does the pt have substance abuse?: No - Immunizations Immunizations are current?: Yes - POLST Patient has POLST: No POLST Status: Full Code PD ED PE NORMAL - Vitals Vital signs reviewed: Yes - General General: Alert and oriented X 3, Well developed/nourished, Other (Dry heaving and holding emesis bag. Her hair is recently washed.) - HEENT HEENT: Pharynx benign - Neck Neck: Supple, no meningeal sign, No adenopathy - Cardiac Cardiac: RRR, No murmur - Respiratory Respiratory: Clear bilaterally - Abdomen Abdomen: Soft, Non distended, No organomegaly, Other (Tender in the mid to upper abdomen. Bowel sounds are present and hypoactive.) - Female Female : Deferred - Rectal Rectal: Deferred - Back Back: No CVA TTP - Derm Derm: Normal color, Warm and dry - Extremities Extremities: No tenderness to palpate, Normal ROM s pain - Neuro Neuro: Alert and oriented X 3, No motor deficit, Normal speech Results - Vitals Vitals: Vital Signs - 24 hr 08/12/19 08/12/19 08/12/19 00:36 02:50 04:30 Temperature 36.9 C Heart Rate 81 78 86 Respiratory 20 16 16 Rate Blood Pressure 146/83 H 132/77 H 141/87 H O2 Saturation 96 98 98 08/12/19 05:33 Temperature Heart Rate 80 Respiratory 14 Rate Blood Pressure 131/83 H O2 Saturation 100 Oxygen O2 Source Room air - Labs Labs: Laboratory Tests 08/12/19 08/12/19 08/12/19 02:06 02:20 02:20 WBC 15.5 H RBC 4.69 Hgb 13.6 Hct 40.9 MCV 87.2 MCH 29.0 MCHC 33.3 RDW 12.4 Plt Count 507 H MPV 9.7 Neut # (Auto) 13.7 H Lymph # (Auto) 1.2 L [place] # (Auto) 0.5 Eos # (Auto) 0.0 Baso # (Auto) 0.1 Absolute Nucleated RBC 0.00 Nucleated RBC % 0.0 Sodium Potassium Chloride Carbon Dioxide Anion Gap BUN Creatinine Estimated GFR (MDRD) Glucose Calcium Magnesium 1.8 Total Bilirubin AST ALT Alkaline Phosphatase Total Protein Albumin Globulin Albumin/Globulin Ratio Lipase Urine Color YELLOW Urine Clarity SL. CLOUDY Urine pH 7.5 Ur Specific [place] 1.020 Urine Protein NEGATIVE Urine Glucose (UA) NEGATIVE Urine Ketones >=80 H Urine Occult Blood LARGE H Urine Nitrite NEGATIVE Urine Bilirubin NEGATIVE Urine Urobilinogen 0.2 (NORMAL) Ur Leukocyte Esterase NEGATIVE Urine RBC 6-10 H Urine WBC 0-3 Ur Squamous Epith Cells MOD Squamous H Amorphous Sediment Moderate Urine Bacteria Few Ur Microscopic Review INDICATED Urine Culture Comments NOT INDICATED Urine HCG, Qual NEGATIVE 08/12/19 02:20 WBC RBC Hgb Hct MCV MCH MCHC RDW Plt Count MPV Neut # (Auto) Lymph # (Auto) [place] # (Auto) Eos # (Auto) Baso # (Auto) Absolute Nucleated RBC Nucleated RBC % Sodium 133 L Potassium 3.5 Chloride 98 L Carbon Dioxide 25 Anion Gap 10.0 BUN 6 Creatinine 0.6 Estimated GFR (MDRD) 120 Glucose 128 H Calcium 9.1 Magnesium Total Bilirubin 0.9 AST 20 ALT 22 Alkaline Phosphatase 52 Total Protein 7.1 Albumin 4.2 Globulin 2.9 Albumin/Globulin Ratio 1.4 Lipase 28 Urine Color Urine Clarity Urine pH Ur Specific [place] Urine Protein Urine Glucose (UA) Urine Ketones Urine Occult Blood Urine Nitrite Urine Bilirubin Urine Urobilinogen Ur Leukocyte Esterase Urine RBC Urine WBC Ur Squamous Epith Cells Amorphous Sediment Urine Bacteria Ur Microscopic Review Urine Culture Comments Urine HCG, Qual PD MEDICAL DECISION MAKING - ED course Complexity details: re-evaluated patient (Given IV fluids and several antiemetics. This did subsequently improve her symptoms well enough to tolerate oral fluids. She feels that she would like to try going home. Her mother is with her and concurs with this.), considered differential (Cyclic vomiting and likely some gastritis now with the repetitive vomiting. Consider cannabis possibly versus some gastritis or ulcer. She has had prior evaluations with imaging and scopes. Her abdomen is benign enough at this point I do not feel she needs imaging.), d/w patient Departure - Departure Disposition: 01 Home, Self Care Clinical Impression: Cyclical vomiting, Dehydration Nausea and vomiting Qualifiers: Vomiting type: unspecified Vomiting Intractability: intractable Qualified Code(s): R11.2 - Nausea with vomiting, unspecified Condition: Stable Record reviewed to determine appropriate education?: Yes Instructions: ED Nausea Vomiting Follow-Up: Lisa Mae ARNP [Primary Care Provider] - Prescriptions: Famotidine 20 mg PO DAILY #20 tablet haloperidoL [Haldol] 0.5 mg PO Q8H PRN #20 tablet PRN Reason: Nausea / Vomiting Comments: Small frequent fluids and initially bland food. Progress diet as able. Consider an acid reducing medicine daily for a week to 10 days to allow better healing of the stomach. Your antiemetic medications at home as needed. Return as indicated for worsening symptoms or other concerns.
[2019-08-12] MEDS ORDERED: SODIUM CHLORIDE 0.9% 1,000 ML IV ONE ×2 (01:59→02:01)
[2019-08-12] MEDS ORDERED: HALOPERIDOL 5 MG/ML VIAL IVP ONE ×2 (02:00→04:20)
[2019-08-12] MEDS ORDERED: LORazepam 2 MG/ML VIAL IVP STA (02:00)
[2019-08-12] MEDS ORDERED: FAMOTIDINE 20 MG/2 ML VIAL IVP STA (02:01)
[2019-08-12 02:14] LABS: BILIRUBIN,URINE NEGATIVE (NEGATIVE); GLUCOSE, URINE (UA) NEGATIVE (NEGATIVE); KETONES,URINE (UA) >=80 mg/dL (NEGATIVE); LEUKOCYTE ESTERASE, URINE NEGATIVE (NEGATIVE); NITRITE,URINE NEGATIVE (NEGATIVE); OCCULT BLOOD,URINE LARGE (NEGATIVE); PH,URINE 7.5 PH (5.0-7.5); PROTEIN,URINE NEGATIVE (NEGATIVE); UROBILINOGEN,URINE 0.2 (NORMAL) E.U./dL (NORMAL)
[2019-08-12 02:17] LABS: CLARITY,URINE SL. CLOUDY (CLEAR); HCG UR QUAL NEGATIVE
[2019-08-12 02:22] LABS: AMORPHOUS SEDIMENT,UR Moderate /LPF; BACTERIA,URINE Few /HPF (None Seen); SQUAMOUS EPITHELIAL CELL,UR MOD Squamous (<= Few)
[2019-08-12] MEDS ORDERED: METOCLOPRAMIDE 10 MG/2 ML VIAL IVP STA (03:25)
[2019-08-12] MEDS ORDERED: ACETAMINOPHEN 1,000 MG/100 ML 100 ML IV STA (04:21)
[2019-08-12 04:43] LABS: BASOPHILS # (AUTO) 0.1 10^3/uL (0.0-0.1); BASOPHILS % (AUTO) 0.4 %; HGB - HEMOGLOBIN 13.6 g/dL (12.0-16.0); LYMPHOCYTES # (AUTO) 1.2 10^3/uL (1.5-3.5); LYMPHOCYTES % (AUTO) 7.9 %; MEAN CORPUSCULAR HGB CONC 33.3 g/dL (32.0-36.0); MEAN CORPUSCULAR VOLUME 87.2 fL (81.0-99.0); MEAN PLATELET VOLUME 9.7 fL (7.9-10.8); MONOCYTES # (AUTO) 0.5 10^3/uL (0.0-1.0); MONOCYTES % (AUTO) 3.2 %; NEUTROPHILS # (AUTO) 13.7 10^3/uL (1.5-6.6); PLT - PLATELET COUNT 507 10^3/uL (130-450); RED BLOOD COUNT 4.69 10^6/uL (4.20-5.40); RED CELL DISTRIBUTION WIDTH 12.4 % (12.0-15.0); WHITE BLOOD COUNT 15.5 x10^3/uL (4.8-10.8)
[2019-08-12 04:57] LABS: ALBUMIN 4.2 g/dL (3.2-5.5); ALBUMIN/GLOBULIN RATIO 1.4 (1.0-2.2); BILIRUBIN,TOTAL 0.9 mg/dL (0.2-1.0); CALCIUM 9.1 mg/dL (8.5-10.3); CREATININE 0.6 mg/dL (0.4-1.0); TOTAL PROTEIN 7.1 g/dL (6.7-8.2)
[2019-08-12 05:36] VITALS: BP 131/83
== END 2019-08-12 05:48 | disposition home or self-care (01) ==
LOC: ED 00:33
DX: R11.15 Cyclical vomiting syndrome unrelated to migraine (principal); E86.0 Dehydration
CPT/HCPCS: 36415; 80053; 81001; 81025; 83690; 83735; 85025; 96361; 96365; 96375; 96376; 99284; 99285; J0131; J2060; J2765; 81003; 87086

== ENCOUNTER 2022-02-06 23:09 | Emergency (ER) | payer OTHER ==
--- OUTSIDE RECORDS SUMMARY | 2022-02-06 23:17 | EXTERNAL MEDICAL SUMMARY RPT | Continuity of Care Document ---
:1990 Author Organization [facility] Address [address] [place] [address] Phone Allergies No information. Encounters No information. Functional Status No information. Immunizations No information. Medications date description facility [id number] buspirone All [id number] buspirone All Problems No information. Procedures date description facility [id number] Visit Code Hold All Results/Labs No information. Social History No information. Vital Signs No information.
[2022-02-06] MEDS ORDERED: SODIUM CHLORIDE 0.9% 1,000 ML IV ONE (23:58)
[2022-02-06] MEDS ORDERED: ONDANSETRON 4 MG/2 ML VIAL IVP STA (23:58)
[2022-02-06] MEDS ORDERED: SODIUM CHLORIDE 0.9% 1,000 ML IV STA (23:59)
[2022-02-07 00:04] LABS: BASOPHILS # (AUTO) 0.1 10^3/uL (0.0-0.1); BASOPHILS % (AUTO) 0.6 %; EOSINOPHILS # (AUTO) 0.2 10^3/uL (0.0-0.7); EOSINOPHILS % (AUTO) 1.7 %; HCT - HEMATOCRIT 46.2 % (37.0-47.0); HGB - HEMOGLOBIN 15.5 g/dL (12.0-16.0); LYMPHOCYTES # (AUTO) 1.7 10^3/uL (1.5-3.5); LYMPHOCYTES % (AUTO) 14.7 %; MEAN CORPUSCULAR HEMOGLOBIN 29.2 pg (27.0-31.0); MEAN CORPUSCULAR HGB CONC 33.5 g/dL (32.0-36.0); MEAN CORPUSCULAR VOLUME 87.2 fL (81.0-99.0); MEAN PLATELET VOLUME 9.4 fL (7.9-10.8); MONOCYTES # (AUTO) 0.6 10^3/uL (0.0-1.0); MONOCYTES % (AUTO) 4.9 %; NEUTROPHILS # (AUTO) 8.8 10^3/uL (1.5-6.6); NEUTROPHILS % (AUTO) 77.7 %; PLT - PLATELET COUNT 485 10^3/uL (130-450); RED CELL DISTRIBUTION WIDTH 12.8 % (12.0-15.0); WHITE BLOOD COUNT 11.4 x10^3/uL (4.8-10.8)
[2022-02-07 00:17] LABS: ALBUMIN 4.9 g/dL (3.2-5.5); ALBUMIN/GLOBULIN RATIO 1.4 (1.0-2.2); BILIRUBIN,TOTAL 0.9 mg/dL (0.2-1.0); CALCIUM 10.4 mg/dL (8.5-10.3); POTASSIUM 3.4 mmol/L (3.5-5.0); TOTAL PROTEIN 8.4 g/dL (6.7-8.2)
[2022-02-07] MEDS ORDERED: HYDROmorphone 1 MG/ML CARPUJECT IVP STA (01:14)
--- NOTE | 2022-02-07 01:18 | ED Physician Documentation ---
PD HPI ABD PAIN - Stated complaint Stated Complaint: ADB PX/VOMIT/NAUSEA - Chief complaint Chief Complaint: Abd Pain - History obtained from History obtained from: Patient - History of Present Illness Timing - onset: How many weeks ago (1.5) Timing - details: Gradual onset, Intermittant Pain level now: 8 Quality: Pain Location: All over / everywhere Improved by: Other (no ameliorating factors) Worsened by: Other (no exacerbating factors) Associated symptoms: Nausea, Vomiting. No: Fever, Diarrhea, Constipation Similar symptoms before: Diagnosis (cyclical vomiting syndrome) Recently seen: Not recently seen - Additional information Additional information: c/o 1.5 weeks of nausea, vomiting, and abdominal pain. She says these symptoms are typical of her chronic/recurrent cyclical vomiting syndrome. The symptoms were being controlled with her prescription medications at home but the past 1-2 days they have been worsening and no longer being controlled with her meds (zofran, lorazepam). She has had previous, though infrequent, [facility] ED visits for same symptoms, with a few admissions for same. Review of Systems Cardiac: reports: Reviewed and negative Respiratory: reports: Reviewed and negative GI: reports: Abdominal Pain, Nausea, Vomiting. 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 : Chronic bladder infection HEENT: Chronic sinusitis Psych: Depression, Anxiety, Claustrophobia Musculoskeletal: None Derm: Psoriasis - Past Surgical History Past Surgical History: Yes General: Colonoscopy, EGD Ortho: Other HEENT: Myringotomy (tubes) - Present Medications Home Medications: Ambulatory Orders Medication Instructions Recorded Confirmed busPIRone [Buspar] 15 mg PO TID 03/13/14 02/16/19 Nortriptyline HCl 100 mg PO QPM 02/16/19 02/16/19 Ondansetron [Ondansetron Odt] 4 mg PO Q6H PRN 02/16/19 02/16/19 Propranolol HCl 40 mg PO DAILY 02/16/19 02/16/19 Rizatriptan Benzoate [Rizatriptan] 5 mg PO PRN PRN MDD 10 mg 02/16/19 02/16/19 diphenhydrAMINE [Benadryl] 50 mg PO HS 02/17/19 02/17/19 Metoclopramide [Reglan] 10 mg PO Q6H #56 tablet 02/18/19 Metoclopramide [Reglan] 10 mg PO Q6H PRN #20 tablet 08/05/19 Famotidine 20 mg PO DAILY #20 tablet 08/12/19 haloperidoL [Haldol] 0.5 mg PO Q8H PRN #20 tablet 08/12/19 Promethazine [Phenergan] 25 mg PO Q6H PRN #10 tab 02/07/22 - Allergies Allergies/Adverse Reactions: Allergies Allergy/AdvReac Type Severity Reaction Status Date / Time maitake mushroom Allergy Unknown Unknown Verified 02/06/22 23:20 peanut Allergy Unknown Respiratory Verified 02/06/22 23:20 reishi mushroom Allergy Unknown Unknown Verified 02/06/22 23:20 Sulfa (Sulfonamide Allergy Unknown Unknown Verified 02/06/22 23:20 Antibiotics) - Social History Does the pt smoke?: No Smoking Status: Never smoker Does the pt drink ETOH?: No Does the pt have substance abuse?: No - Immunizations Immunizations are current?: Yes - POLST Patient has POLST: No POLST Status: Full Code PD ED PE NORMAL - Vitals Vital signs reviewed: Yes - General General: Alert and oriented X 3, Well developed/nourished, Other (appears to be in moderate painful distress) - Cardiac Cardiac: RRR, No murmur - Respiratory Respiratory: No respiratory distress, Clear bilaterally - Abdomen Abdomen: Soft, Non tender, Non distended - Back Back: No CVA TTP Results - Vitals Vitals: Oxygen O2 Source Room air - Labs Labs: Laboratory Tests 02/06/22 02/06/22 23:45 23:45 WBC 11.4 H RBC 5.30 Hgb 15.5 Hct 46.2 MCV 87.2 MCH 29.2 MCHC 33.5 RDW 12.8 Plt Count 485 H MPV 9.4 Neut # (Auto) 8.8 H Lymph # (Auto) 1.7 [place] # (Auto) 0.6 Eos # (Auto) 0.2 Baso # (Auto) 0.1 Absolute Nucleated RBC 0.00 Nucleated RBC % 0.0 Sodium 137 Potassium 3.4 L Chloride 101 Carbon Dioxide 23 Anion Gap 13.0 BUN 13 Creatinine 1.0 Estimated GFR (MDRD) 66 L Glucose 137 H Calcium 10.4 H Total Bilirubin 0.9 AST 20 ALT 29 Alkaline Phosphatase 76 Total Protein 8.4 H Albumin 4.9 Globulin 3.5 Albumin/Globulin Ratio 1.4 Lipase 23 PD MEDICAL DECISION MAKING - ED course Complexity details: reviewed old records, reviewed results, re-evaluated patient, considered differential, d/w patient, d/w family ED course: no concerning findings on blood tests (mild thrombocytosis, mild leukocytosis, minimal hypokalemia). She is given IV zofran and IV fluids (one liter NS) without improvement in symptoms. She is then given IV dilaudid, phenergan, and a second liter of NS and on reevaluation she appears comfortable/NAD and reports excellent symptom relief. She did not require more than the single dose of dilaudid and phenergan. I offered to provide a prescription for phenergan and this was electronically submitted to her pharmacy of choice. Departure - Departure Disposition: 01 Home, Self Care Clinical Impression: Cyclical vomiting syndrome Condition: Good Instructions: ED Nausea Vomiting Prescriptions: Promethazine [Phenergan] 25 mg PO Q6H PRN #10 tab PRN Reason: Nausea / Vomiting Comments: A prescription for phenergan (promethazine, anti-nausea medication) has been electronically submitted to [facility] pharmacy in [place]. This can be used in addition to the zofran for nausea/vomiting. Discharge Date/Time: 02/07/22 03:15
[2022-02-07 01:22] VITALS: BP 128/76
[2022-02-07] MEDS ORDERED: PROMETHAZINE INJ 25 MG in SODIUM CHLORIDE 0.9% 50 ML IV STA (01:22)
[2022-02-07] MEDS ORDERED: SODIUM CHLORIDE 0.9% 1,000 ML IV STA (01:22)
[2022-02-07] MEDS ORDERED: PROMETHAZINE 25 MG/1 ML VIAL ONE (01:38)
== END 2022-02-07 03:15 | disposition home or self-care (01) ==
LOC: ED 23:09
DX: R11.15 Cyclical vomiting syndrome unrelated to migraine (principal)
CPT/HCPCS: 36415; 80053; 83690; 85025; 96361; 96365; 96366; 96375; 99283; 99284; J1170; J7040

== ENCOUNTER 2022-05-10 13:38 | Emergency (ER) | payer OTHER ==
[2022-05-10 14:28] LABS: BASOPHILS # (AUTO) 0.1 10^3/uL (0.0-0.1); BASOPHILS % (AUTO) 0.6 %; EOSINOPHILS # (AUTO) 0.2 10^3/uL (0.0-0.7); EOSINOPHILS % (AUTO) 1.5 %; HCT - HEMATOCRIT 45.9 % (37.0-47.0); HGB - HEMOGLOBIN 15.8 g/dL (12.0-16.0); LYMPHOCYTES # (AUTO) 1.5 10^3/uL (1.5-3.5); LYMPHOCYTES % (AUTO) 13.7 %; MEAN CORPUSCULAR HEMOGLOBIN 30.2 pg (27.0-31.0); MEAN CORPUSCULAR HGB CONC 34.4 g/dL (32.0-36.0); MEAN CORPUSCULAR VOLUME 87.6 fL (81.0-99.0); MEAN PLATELET VOLUME 9.1 fL (7.9-10.8); MONOCYTES # (AUTO) 0.5 10^3/uL (0.0-1.0); MONOCYTES % (AUTO) 4.3 %; NEUTROPHILS % (AUTO) 79.5 %; PLT - PLATELET COUNT 463 10^3/uL (130-450); RED BLOOD COUNT 5.24 10^6/uL (4.20-5.40); RED CELL DISTRIBUTION WIDTH 12.8 % (12.0-15.0); WHITE BLOOD COUNT 11.3 x10^3/uL (4.8-10.8)
[2022-05-10 14:42] LABS: ALBUMIN 4.5 g/dL (3.2-5.5); ALBUMIN/GLOBULIN RATIO 1.4 (1.0-2.2); BILIRUBIN,TOTAL 0.5 mg/dL (0.2-1.0); CALCIUM 10.1 mg/dL (8.5-10.3); POTASSIUM 4.1 mmol/L (3.5-5.0); TOTAL PROTEIN 7.8 g/dL (6.7-8.2)
[2022-05-10] MEDS ORDERED: SODIUM CHLORIDE 0.9% 1,000 ML IV STA ×2 (16:09)
[2022-05-10] MEDS ORDERED: HYDROmorphone 1 MG/ML CARPUJECT IVP STA (16:10)
[2022-05-10] MEDS ORDERED: DROPERIDOL 5 MG/2 ML VIAL IVP STA ×2 (16:10→20:39)
[2022-05-10] MEDS ORDERED: PROMETHAZINE INJ 25 MG in SODIUM CHLORIDE 0.9% 50 ML IV STA (17:49)
[2022-05-10] MEDS ORDERED: KETOROLAC 30 MG/ML VIAL IVP STA (17:49)
[2022-05-10] MEDS ORDERED: LORazepam 2 MG/ML VIAL IVP STA (19:01)
[2022-05-10 19:12] LABS: MUDS CUTOFF CONCENTRATIONS CUTOFF CONC BELOW:
[2022-05-10 19:13] LABS: BILIRUBIN,URINE NEGATIVE (NEGATIVE); GLUCOSE, URINE (UA) 100 mg/dL (NEGATIVE); KETONES,URINE (UA) 40 mg/dL (NEGATIVE); LEUKOCYTE ESTERASE, URINE NEGATIVE (NEGATIVE); NITRITE,URINE NEGATIVE (NEGATIVE); OCCULT BLOOD,URINE TRACE-INTA (NEGATIVE); PH,URINE 7.5 PH (5.0-7.5); PROTEIN,URINE NEGATIVE (NEGATIVE); UROBILINOGEN,URINE 0.2 (NORMAL) E.U./dL (NORMAL)
[2022-05-10 19:15] LABS: CLARITY,URINE HAZY (CLEAR)
[2022-05-10 19:23] LABS: AMORPHOUS SEDIMENT,UR Marked /LPF; BACTERIA,URINE Few /HPF (None Seen); RBC,URINE 0-5 /HPF (0-5); SQUAMOUS EPITHELIAL CELL,UR MOD Squamous (<= Few); WBC,URINE 0-3 /HPF (0-5)
[2022-05-10 19:24] LABS: COCAINE SCREEN URINE NEGATIVE (NEGATIVE); METHAMPHETAMINES SCREEN, URINE NEGATIVE (NEGATIVE); OPIATE SCREEN, URINE POSITIVE (NEGATIVE); THC CANNABINOID SCREEN, URINE POSITIVE (NEGATIVE)
[2022-05-10 19:25] LABS: AMPHETAMINE SCREEN,URINE NEGATIVE (NEGATIVE); BARBITURATE SCREEN,UR NEGATIVE (NEGATIVE); BENZODIAZEPINES SCREEN, URINE POSITIVE (NEGATIVE); METHADONE SCREEN, URINE NEGATIVE (NEGATIVE); OXYCODONE SCREEN, URINE NEGATIVE (NEGATIVE); PROPOXYPHENE SCREEN, URINE NEGATIVE (NEGATIVE); TRICYCLIC ANTIDEPRESSANT,URINE POSITIVE (NEGATIVE)
[2022-05-10 20:07] LABS: HCG UR QUAL NEGATIVE
[2022-05-10] MEDS ORDERED: MORPHINE 2 MG/ML CARPUJECT IVP STA (20:39)
[2022-05-10] MEDS ORDERED: diphenhydrAMINE INJ 50 MG/ML VIAL IVP STA (20:39)
--- NOTE | 2022-05-10 21:59 | ED Physician Documentation ---
History of Present Illness - Stated complaint Stated Complaint: VOMITING - Chief complaint Chief Complaint: Abd Pain - History obtained from History obtained from: Patient, Family - History of Present Illness Timing: Today Pain level max: 5 Pain level now: 5 - Additonal information Additional information: Patient is a 31-year-old female who presents to the emergency department with nausea and vomiting as well as abdominal pain today. She states has been ongoing issue since she was 8 years old. She states that she has been diagnosed with cyclical vomiting syndrome. Adamantly denies any marijuana use. She states that she takes Haldol, Reglan, Phenergan and Zofran at home. She recently moved back to [facility] from [place]. She states she does not have a doctor here yet. Review of Systems Ten Systems: 10 systems reviewed and negative Constitutional: denies: Fever, Chills Ears: denies: Ear pain Nose: denies: Rhinorrhea / runny nose, Congestion Respiratory: denies: Cough GI: reports: Nausea, Vomiting. 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 : Chronic bladder infection HEENT: Chronic sinusitis Psych: Depression, Anxiety, Claustrophobia Musculoskeletal: None Derm: Psoriasis - Past Surgical History Past Surgical History: Yes General: Colonoscopy, EGD Ortho: Other HEENT: Myringotomy (tubes) - Present Medications Home Medications: Ambulatory Orders Medication Instructions Recorded Confirmed busPIRone [Buspar] 15 mg PO TID 03/13/14 02/16/19 Nortriptyline HCl 100 mg PO QPM 02/16/19 02/16/19 Ondansetron [Ondansetron Odt] 4 mg PO Q6H PRN 02/16/19 02/16/19 Propranolol HCl 40 mg PO DAILY 02/16/19 02/16/19 Rizatriptan Benzoate [Rizatriptan] 5 mg PO PRN PRN MDD 10 mg 02/16/19 02/16/19 diphenhydrAMINE [Benadryl] 50 mg PO HS 02/17/19 02/17/19 Metoclopramide [Reglan] 10 mg PO Q6H #56 tablet 02/18/19 Metoclopramide [Reglan] 10 mg PO Q6H PRN #20 tablet 08/05/19 Famotidine 20 mg PO DAILY #20 tablet 08/12/19 haloperidoL [Haldol] 0.5 mg PO Q8H PRN #20 tablet 08/12/19 Promethazine [Phenergan] 25 mg PO Q6H PRN #10 tab 02/07/22 - Allergies Allergies/Adverse Reactions: Allergies Allergy/AdvReac Type Severity Reaction Status Date / Time maitake mushroom Allergy Unknown Unknown Verified 05/10/22 14:05 peanut Allergy Unknown Respiratory Verified 05/10/22 14:05 reishi mushroom Allergy Unknown Unknown Verified 05/10/22 14:05 Sulfa (Sulfonamide Allergy Unknown Unknown Verified 05/10/22 14:05 Antibiotics) - Social History Does the pt smoke?: No Smoking Status: Never smoker Does the pt drink ETOH?: No Does the pt have substance abuse?: No - Immunizations Immunizations are current?: Yes - POLST Patient has POLST: No POLST Status: Full Code PD ED PE NORMAL - Vitals Vital signs reviewed: Yes - General General: Alert and oriented X 3, No acute distress, Well developed/nourished - HEENT HEENT: PERRL, Moist mucous membranes - Neck Neck: Supple, no meningeal sign - Cardiac Cardiac: RRR - Respiratory Respiratory: No respiratory distress, Clear bilaterally - Abdomen Abdomen: Soft, Non tender, Non distended - Derm Derm: Warm and dry - Extremities Extremities: No edema, No calf tenderness / cord - Neuro Neuro: Alert and oriented X 3 - Psych Psych: Normal mood, Normal affect Results - Vitals Vitals: Vital Signs - 24 hr 05/10/22 05/10/22 05/10/22 14:02 19:18 21:00 Temperature 36.8 C Heart Rate 106 H 106 H 105 H Respiratory 18 18 18 Rate Blood Pressure 155/124 H 168/106 H 174/90 H O2 Saturation 100 100 100 05/10/22 23:00 Temperature Heart Rate 99 Respiratory 16 Rate Blood Pressure 190/99 H O2 Saturation 99 Oxygen O2 Source Room air - Labs Labs: Laboratory Tests 05/10/22 05/10/22 05/10/22 14:23 14:23 19:06 WBC 11.3 H RBC 5.24 Hgb 15.8 Hct 45.9 MCV 87.6 MCH 30.2 MCHC 34.4 RDW 12.8 Plt Count 463 H MPV 9.1 Neut # (Auto) 9.0 H Lymph # (Auto) 1.5 [place] # (Auto) 0.5 Eos # (Auto) 0.2 Baso # (Auto) 0.1 Absolute Nucleated RBC 0.00 Nucleated RBC % 0.0 Sodium 138 Potassium 4.1 Chloride 104 Carbon Dioxide 23 Anion Gap 11.0 BUN 9 Creatinine 1.0 Estimated GFR (MDRD) 66 L Glucose 128 H Calcium 10.1 Total Bilirubin 0.5 AST 25 ALT 34 Alkaline Phosphatase 64 Total Protein 7.8 Albumin 4.5 Globulin 3.3 Albumin/Globulin Ratio 1.4 Lipase 27 Urine Color YELLOW Urine Clarity HAZY Urine pH 7.5 Ur Specific [place] 1.025 Urine Protein NEGATIVE Urine Glucose (UA) 100 H Urine Ketones 40 H Urine Occult Blood TRACE-INTA Urine Nitrite NEGATIVE Urine Bilirubin NEGATIVE Urine Urobilinogen 0.2 (NORMAL) Ur Leukocyte Esterase NEGATIVE Urine RBC 0-5 Urine WBC 0-3 Ur Squamous Epith Cells MOD Squamous H Amorphous Sediment Marked Urine Bacteria Few Ur Microscopic Review INDICATED Urine Culture Comments NOT INDICATED Urine HCG, Qual Urine Opiates Screen POSITIVE H Ur Oxycodone Screen NEGATIVE Urine Methadone Screen NEGATIVE Ur Propoxyphene Screen NEGATIVE Ur Barbiturates Screen NEGATIVE Ur Tricyclics Screen POSITIVE H Ur Phencyclidine Scrn NEGATIVE Ur Amphetamine Screen NEGATIVE U Methamphetamines Scrn NEGATIVE U Benzodiazepines Scrn POSITIVE H Urine Cocaine Screen NEGATIVE U Cannabinoids Screen POSITIVE H 05/10/22 19:57 WBC RBC Hgb Hct MCV MCH MCHC RDW Plt Count MPV Neut # (Auto) Lymph # (Auto) [place] # (Auto) Eos # (Auto) Baso # (Auto) Absolute Nucleated RBC Nucleated RBC % Sodium Potassium Chloride Carbon Dioxide Anion Gap BUN Creatinine Estimated GFR (MDRD) Glucose Calcium Total Bilirubin AST ALT Alkaline Phosphatase Total Protein Albumin Globulin Albumin/Globulin Ratio Lipase Urine Color Urine Clarity Urine pH Ur Specific [place] Urine Protein Urine Glucose (UA) Urine Ketones Urine Occult Blood Urine Nitrite Urine Bilirubin Urine Urobilinogen Ur Leukocyte Esterase Urine RBC Urine WBC Ur Squamous Epith Cells Amorphous Sediment Urine Bacteria Ur Microscopic Review Urine Culture Comments Urine HCG, Qual NEGATIVE Urine Opiates Screen Ur Oxycodone Screen Urine Methadone Screen Ur Propoxyphene Screen Ur Barbiturates Screen Ur Tricyclics Screen Ur Phencyclidine Scrn Ur Amphetamine Screen U Methamphetamines Scrn U Benzodiazepines Scrn Urine Cocaine Screen U Cannabinoids Screen PD MEDICAL DECISION MAKING - ED course Complexity details: reviewed results, re-evaluated patient, considered differential, d/w patient, d/w family ED course: 31-year-old female presents to the emergency room with abdominal pain and vomi ting. Her urine tox screen came back positive for cannabinoids. I reviewed her prior charts and they have all come back positive for cannabinoids despite her stating that she does not use marijuana. When confronted with this information she states that she does use marijuana daily. She states she did not want to tell me because she is afraid that we will blame her symptoms on the cannabis use. Patient was given droperidol, Benadryl, Phenergan, Reglan, IV fluids, Ativan and is continuing to feel nauseated. She was feeling better and was going to be discharged but then began to vomit again. There are no beds available in the hospital [facility] or in the region. Therefore we will keep her on IV fluids and she will be signed out to the [facility] physician. This document was made in part using voice recognition software. While efforts are made to proofread this document, sound alike and grammatical errors may occur. Departure - Departure Clinical Impression: Cyclical vomiting syndrome, Abdominal pain Condition: Good Instructions: ED Nausea Vomiting Follow-Up: [facility] [place] [Provider Group] [facility] [Provider Group] [facility] [Provider Group] [facility] [Provider Group] Comments: Please follow-up with your doctor for further care. Drink plenty of fluids. Return if you worsen. It is recommended that you obtain a braille operator to consult for your cyclical vomiting syndrome as well.
[2022-05-10] MEDS ORDERED: METOCLOPRAMIDE 10 MG/2 ML VIAL IVP STA (23:10)
[2022-05-11 00:03] VITALS: BP 144/88
== END 2022-05-11 00:20 | disposition home or self-care (01) ==
LOC: ED 13:38
DX: R11.15 Cyclical vomiting syndrome unrelated to migraine (principal); R10.9 Unspecified abdominal pain
CPT/HCPCS: 36415; 80053; 80306; 81001; 81025; 83690; 85025; 96361; 96365; 96375; 99282; 99285; J1170; J1200; J2060; J2765; J7040; 81003; 87086